=== PATIENT | male | born 1995 | race Caucasian/White ===

== ENCOUNTER 2023-11-13 11:12 | Outpatient (CLI) | payer OTHER, SELFPAY ==
--- NOTE | ~2023-11-13 | XR_ITS ---
EXAMINATION: XR chest 2V 11/13/2023 11:28 INDICATION: Cough PROCEDURE: 2 view chest COMPARISON: No prior studies for comparison. FINDINGS: Left basilar airspace disease may represent atelectasis or developing pneumonia. The cardio mediastinal silhouette is within normal limits. There are no pleural effusions. There is no pneumot horax suspected. IMPRESSION: 1: Basilar airspace disease, atelectasis versus pneumonia. Reviewed, dictated and finalized at location B.
== END 2023-11-13 11:13 | disposition home or self-care (01) ==
LOC: ANHIMG 11:18
PROVIDERS: PCP Family Medicine; Visit Provider Nurse Practitioner Family
DX: J84.89 Other specified interstitial pulmonary diseases (principal); R05.9 Cough, unspecified
CPT/HCPCS: 71046

== ENCOUNTER 2023-11-30 09:57 | Outpatient (CLI) | payer OTHER, SELFPAY ==
--- NOTE | ~2023-11-30 | CT_ITS ---
CT Scan of the Chest without Contrast: Clinical Indication: Chronic cough Technique: Contiguous sections were acquired throughout the chest without intravenous contrast. Dose reduction technique was used on this scan by utilizing automated exposure control and iterative recon struction technique. The dose-length product (DLP) was 155.58 mGy-cm. Findings: There is no evidence of any significant mediastinal, hilar or axillary lymphadenopathy. The mediastin al soft tissues appear normal. There is no evidence of pleural or pericardial effusion. Probable minimal tree-in-bud opacities posteriorly the left lung base and in the lingula. Images through the upper abdomen reveal no abnormalities. Impression: Probable minimal tree-in-bud opacities at the left lung base and lingula, compatible with mild small airways infectious process. Reviewed, dictated and finalized at location . Impression: Probable minimal tree-in-bud opacities at the left lung base and lingula, teja tible with mild small airways infectious process.
== END 2023-11-30 09:58 | disposition home or self-care (01) ==
PROVIDERS: PCP Family Medicine; Visit Provider Nurse Practitioner Family
DX: R05.3 Chronic cough (principal)
CPT/HCPCS: 71250

== ENCOUNTER 2024-01-25 13:54 | Emergency (ER) | payer OTHER, SELFPAY ==
[2024-01-25] VITALS (10 sets, daily range): BP systolic 135–155; BP diastolic 84–98; PULSE 92–118; RESP 12–20; TEMP 36.7–36.8; O2SAT 93–97
--- NOTE | ~2024-01-25 | XR_ITS ---
CHEST RADIOGRAPH, PA AND LATERAL CLINICAL HISTORY: SOB . COMPARISON: 11/13/2023 Reference is also made to CT examination of the chest dated 11/30/2023 TECHNIQUE: PA and lateral views of the chest. FINDINGS The cardiomediastinal silhouette is unremarkable. The lungs are clear. Visualized osseous structures and soft tissues are unremarkable. IMPRESSION: No focal infiltrate or effusion. If clinical suspicion persists, cross-sectional imaging (noncontrast enhanced CT examination of the c hest) is suggested for further evaluation. Reviewed, dictated and finalized at location A. TEACHER IMPRESSION: No focal infiltrate or effusion. If clinical suspicion persists, cross-sectional imaging (noncontrast enhanced C T examination of the chest) is suggested for further evaluation.
--- NOTE | ~2024-01-25 | CT_ITS ---
EXAMINATION: CTA chest PE protocol DATE: 01/25/2024 17:04 [facility] INDICATION: Chronic cough. TECHNIQUE: Computed tomographic angiography (CTA) of the chest was performed with 100 mL Omnipaque-35 0 intravenous contrast. The dose-length product was 195.07 mGy-cm. Maximum intensity projection 3D-re constructions of the aorta and other arteries were constructed by the technologist on a separate work station. COMPARISON: 11/30/2023 and 10/27/2013. Reference is also made to plain film evaluations of the chest da adenike 01/25/2024 and 11/13/2023. FINDINGS: No filling defect within the main or proximal pulmonary arteries. The main pulmonary artery is not enlarged. The great vessels are intact. The thoracic aorta is unremarkable. Trace peribronchial thickening is identified within a bibasilar distribution, unchanged from and increased from 10/27/2013. The bilateral lung jorge are otherwise clear. No pathologically enlarged or morphologically suspicious lymph nodes within the mediastinum. Incidental notation is made of narrowing of the celiac trunk, with poststenotic dilatation. Superior mesenteric artery is of normal caliber. The remainder of the upper abdomen is otherwise unremarkable. No significant degenerative disease is identified within the thoracic spine. No lytic or blastic lesions are noted. IMPRESSION: No pulmonary embolus. No aortic dissection. Trace peribronchial thickening in the bilateral lower lobes, unchanged from 11/30/2023 and increased f rom 10/28/2023. The bilateral lung jorge are otherwise clear. 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 Reviewed, dictated and finalized at location A. HOSPICE IMPRESSION: No pulmonary embolus. No aortic dissection. Trace peribronchial thickening in the bilateral lower lobes, unchanged from 11/14 and increased from 10/28/2023. The bilateral lung jorge are otherwise clear. 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
--- NOTE | 2024-01-25 14:39 | ECG_ITS ---
Test Date: 2024-01-25 15:02:27 Measurements Intervals [place] Rate: 89 P: 71 ID: [id number] QRS: 53 QRSD: 102 T: 77 QT: 342 QTc: 417 Interpretive Statements SINUS RHYTHM WITH SINUS ARRHYTHMIA INCOMPLETE RIGHT BUNDLE BRANCH BLOCK BASELINE ARTIFACT- , V1-V3 BORDERLINE ECG No previous ECG available for comparison Electronically Signed On 01-25-2024 15:25:09 LINKER UP by Fuad Baker D.O.
[2024-01-25 15:14] LABS: Hematocrit 44.5 % (42.0-52.0); Hemoglobin 15.3 g/dL (14.0-18.0); Mean Corpuscular HGB Conc 34.4 g/dl (32-36); Mean Corpuscular Volume 90.1 fl (80-100); Mean Platelet Volume 9.7 fl (7.4-10.4); Platelet Count Result 336 k/mm3 (150-375); Red Blood Count 4.94 M/mm3 (4.6-6.20); Red Cell Distribution Width 13.9 % (11.5-14.5); White Blood Count 12.7 K/mm3 (4.5-10.0)
[2024-01-25 15:29] LABS: Alanine Aminotransferase 21 U/L (6-50); Alkaline Phosphatase 59 U/L (38-126); Anion Gap 11 mmol/L (4-12); Aspartate Amino Transferase 24 U/L (17-59); Bilirubin,Total 1.1 mg/dL (0.2-1.3); Blood Urea Nitrogen 17 mg/dL (9-20); Calcium 9.7 mg/dL (8.4-10.2); Carbon Dioxide 26 mmol/L (22-30); Chloride 104 mmol/L (98-107); Estimated CRCL calculation 94 ml/min; Estimated Glomerular Filt Rate > 60; Glucose 121 mg/dL (65-110); Potassium 3.6 mmol/L (3.4-5.0); Sodium 141 mmol/L (137-145)
[2024-01-25 15:55] LABS: Band Neutrophils Percent 1 % (0-6); Basophils Percent Manual 0 % (0-1); Eosinophils Percent Manual 0 % (0-4); Lymphocytes Absolute Manual 0.63 K/mm3 (1.1-4.5); Lymphocytes Percent Manual 5 % (18-44); Monocytes Percent Manual 0 % (3-9); Neutrophils Absolute Manual 12.06 K/mm3 (1.3-6.7); Neutrophils Percent Manual 94 % (46-73); Platelet Estimate Adequate (Adequate); Total Cells Counted 100
[2024-01-25 15:59] LABS: Schistocytes None Seen
[2024-01-25] MEDS: IPRATROPIUM 0.5 MG/ALBUTEROL SULFATE 2.5 MG AMPUL.NEB 3 ML INHALATION (16:30)
--- NOTE | 2024-01-25 16:35 | PC.NURSE ---
Lab called to add on trop and BNP
[2024-01-25 16:54] LABS: NT Pro B Type Natriuretic Pept 78 pg/mL (19.9-100); Troponin I < 0.012 ng/mL (0.000-0.034)
--- NOTE | 2024-01-25 17:19 | ED.GENADULT ---
HPI - General Adult General Chief complaint: Shortness of Breath/Dyspnea Stated complaint: cant breathe Time Seen by Provider: 01/25/24 15:43 History of Present Illness HPI narrative: Patient 28-year-old gentleman presents emergency department chief complaint of cough. The patient reports that for the last month he has had a cough that is productive of yellow sputum reports he was treated with antibiotics went to Urgent Care today they give a shot of steroid and recommended that he come to the emergency department Related Data Allergies Allergy/AdvReac Type Severity Reaction Status Date / Time amoxicillin Allergy Unknown Unknown Unverified 01/25/24 16:28 clavulanic acid Allergy Unknown Unknown Unverified 01/25/24 16:28 Review of Systems Review of Systems: A 10 system review of systems was completed on the patient and is negative except for what is stated in the HPI. Nursing and ancillary documentation was reviewed. PMFSH Past Medical History Medical History Exposure to COVID-19 virus Family History Family History Other Diabetes mellitus Family history of malignant neoplasm of kidney Hypertension Social History Social History Second hand tobacco smoke exposure: No Alcohol intake: current Substance use: current Substance use type: marijuana Do You Feel Safe in your Home?: Yes Lack of Transportation: No Lack of Food: Never True Current Housing: I Have Housing Concerned About Future Housing: No Difficulty Paying Gas/Electric Bills: No Difficulty Paying for Meds: No Currently Unemployed: No Education: High School Diploma/GED Difficulty w/ Childcare or Family Care: No Living arrangements: with family Occupation/Education: occupation Gender identity (if verbalized by the patient): Male Exam Narrative: GENERAL: Well-appearing, well-nourished, and in no acute distress. HEAD: Normocephalic, atraumatic. EYES: PERRLA and EOMI. ENT: Nares clear, no rhinorrhea or epistaxis. Mucous membranes moist. NECK: Supple. CHEST: Clear to auscultation. No respiratory distress. HEART: Regular rate and rhythm. No murmur heard. Normal peripheral pulses. ABDOMEN: Soft, nontender, nondistended, normal active bowel sounds. EXTREMITIES: Normal range of motion. No edema. SKIN: Warm, dry, no rash. NEURO: No focal deficits. Alert and oriented x3. PSYCH: Normal mood and affect. Course Vital Signs Vital signs: Vital Signs Temperature 36.7 C 01/25/24 13:56 Pulse Rate 112 H 01/25/24 13:56 Respiratory Rate 20 01/25/24 13:56 Blood Pressure 153/98 H 01/25/24 13:56 Pulse Oximetry 95 01/25/24 13:56 Oxygen Delivery Room Air 01/25/24 13:56 Temperature 36.7 C 01/25/24 13:56 Pulse Rate 106 H 01/25/24 16:38 Respiratory Rate 18 01/25/24 16:38 Blood Pressure 155/84 H 01/25/24 14:11 Pulse Oximetry 97 01/25/24 16:33 Oxygen Delivery Room Air 01/25/24 16:33 Medical Decision Making MDM Narrative Medical decision making narrative: Differential diagnosis includes pneumonia, bronchitis, pulmonary embolism, CTA chest showed no evidence of pulmonary embolism, there was trace bronchial thickening. The patient will be started back on antibiotics and will be started on a steroid pulse Vital Signs Vital Signs: Vital Signs Temperature 36.7 C 01/25/24 13:56 Pulse Rate 112 H 01/25/24 13:56 Respiratory Rate 20 01/25/24 13:56 Blood Pressure 153/98 H 01/25/24 13:56 Pulse Oximetry 95 01/25/24 13:56 Oxygen Delivery Room Air 01/25/24 13:56 Temperature 36.7 C 01/25/24 13:56 Pulse Rate 106 H 01/25/24 16:38 Respiratory Rate 18 01/25/24 16:38 Blood Pressure 155/84 H 01/25/24 14:11 Pulse Oximetry 97 01/25/24 16:33 Oxygen Delivery Room Air 01/25/24 16:33 Lab Data 01/25/24 15:08 01/25/24 15:08 Labs: Lab Results 01/25/24 Range/Units 15:08 WBC 12.7 H (4.5-10.0) K/mm3 RBC 4.94 (4.6-6.20) M/mm3 Hgb 15.3 (14.0-18.0) g/dL Hct 44.5 (42.0-52.0) % MCV 90.1 (80-100) fl MCH 31.0 (26-34) pg MCHC 34.4 (32-36) g/dl RDW 13.9 (11.5-14.5) % Plt Count 336 (150-375) k/mm3 MPV 9.7 (7.4-10.4) fl Immature Gran % (Auto) Not Reportable Neut % (Auto) Not Reportable Lymph % (Auto) Not Reportable [place] % (Auto) Not Reportable Eos % (Auto) Not Reportable Baso % (Auto) Not Reportable Lymph # (Auto) Not Reportable [place] # (Auto) Not Reportable Eos # (Auto) Not Reportable Baso # (Auto) Not Reportable Abs Immat Gran (auto) Not Reportable Absolute Neuts (auto) Not Reportable Absolute Nucleated RBC Not Reportable Total Counted 100 Neutrophils % (Manual) 94 H (46-73) % Band Neutrophils % 1 (0-6) % Lymphocytes % (Manual) 5 L (18-44) % Monocytes % (Manual) 0 L (3-9) % Eosinophils % (Manual) 0 (0-4) % Basophils % (Manual) 0 (0-1) % Nucleated RBC % Not Reportable Abs Neuts (Manual) 12.06 H (1.3-6.7) K/mm3 Abs Lymphs (Manual) 0.63 L (1.1-4.5) K/mm3 Abs Monocytes (Manual) 0.00 L (0.1-0.90) K/mm3 Absolute Eos (Manual) 0.00 L (0.02-0.50) K/mm3 Abs Basophils (Manual) 0.00 (0.0-0.1) K/mm3 Platelet Estimate Adequate (Adequate) Schistocytes None seen Sodium 141 (137-145) mmol/L Potassium 3.6 (3.4-5.0) mmol/L Chloride 104 (98-107) mmol/L Carbon Dioxide 26 (22-30) mmol/L Anion Gap 11 (4-12) mmol/L BUN 17 (9-20) mg/dL Creatinine 0.80 (0.7-1.3) mg/dL Estim Creat Clear Calc 94 ml/min Estimated GFR > 60 (59 - ) Glucose 121 H (65-110) mg/dL Calcium 9.7 (8.4-10.2) mg/dL Total Bilirubin 1.1 (0.2-1.3) mg/dL AST 24 (17-59) U/L ALT 21 (6-50) U/L Alkaline Phosphatase 59 (38-126) U/L Troponin I < 0.012 (0.000-0.034) ng/mL NT-Pro-B Natriuret Pep 78 (19.9-100) pg/mL Total Protein 8.0 (6.3-8.2) g/dL Albumin 5.0 (3.5-5.1) g/dL Discharge Plan Discharge Clinical Impression: Acute bronchitis Patient Disposition: Home, Self-Care Condition: Stable Instructions: Antibiotic Form, Acute Bronchitis (ED) Prescriptions: New doxycycline hyclate 100 mg tablet 100 mg PO BID Qty: 14 0RF prednisone 20 mg tablet 40 mg PO DAILY 5 Days Qty: 10 0RF benzonatate 200 mg capsule 200 mg PO TID PRN (Reason: cough) Qty: 21 0RF albuterol sulfate 90 mcg/actuation HFA aerosol inhaler 2 puff inhalation QID PRN (Reason: shortness of breath or wheezing) Qty: 8.5 0RF No Action esomeprazole magnesium [Nexium] 20 mg capsule,delayed release(DR/EC) 20 mg PO DAILY Qty: 30 0RF Follow-up/Referrals: Connor Padron MD [Primary Care Provider] - Time of Disposition: 17:32
== END 2024-01-25 17:50 | disposition home or self-care (01) ==
PROVIDERS: Emergency Medicine; Emergency Provider Emergency Medicine; PCP Family Medicine
DX: J20.9 Acute bronchitis, unspecified (principal)
CPT/HCPCS: 36415; 71046; 71275; 80053; 83880; 84484; 85025; 93005; 94640; 99284; Q9967